=== PATIENT | male | born 1990 | race Caucasian/White ===

== ENCOUNTER 2018-09-20 10:10 | Emergency (ER) | payer MEDICAID, OTHER ==
[~2018-09-20] VITALS: Ht 182.9 cm; Wt 81.8 kg
[2018-09-20] MEDS ORDERED: IBUPROFEN 600 MG TABLET PO ONE (11:00)
[2018-09-20] MEDS ORDERED: SULFAMETHOX/TRIMETH DS 800-160 MG/TABLET PO ONE (11:00)
[2018-09-20] MEDS ORDERED: CEPHALEXIN MONOHYDRATE 500 MG CAPSULE PO ONE (11:00)
[2018-09-20] MEDS ORDERED: LIDOCAINE 1% 10 ML VIAL INJ ONE (11:30)
[2018-09-20 11:55] VITALS: BP 135/81
== END 2018-09-20 12:11 | disposition home or self-care (01) ==
LOC: EMS 10:10
DX: L02.414 Cutaneous abscess of left upper limb (principal); L03.114 Cellulitis of left upper limb; F11.90 Opioid use, unspecified, uncomplicated; F12.90 Cannabis use, unspecified, uncomplicated; F15.90 Other stimulant use, unspecified, uncomplicated
CPT/HCPCS: 99284; J3490

== ENCOUNTER 2018-09-21 12:55 | Emergency (ER) | payer MEDICAID ==
[~2018-09-21] VITALS: Ht 182.9 cm; Wt 84.1 kg
[2018-09-21 13:31] VITALS: BP 135/89
== END 2018-09-21 14:48 | disposition left against medical advice (07) ==
LOC: EMS 12:56
DX: L02.414 Cutaneous abscess of left upper limb (principal); F17.210 Nicotine dependence, cigarettes, uncomplicated; F12.90 Cannabis use, unspecified, uncomplicated; F19.90 Other psychoactive substance use, unspecified, uncomplicated; F11.90 Opioid use, unspecified, uncomplicated; Z53.21 Procedure and treatment not carried out due to patient leaving prior to being seen by health care provider